=== PATIENT | female | born 1995 ===

== ENCOUNTER 2019-12-13 23:20 | Emergency (ER) | payer OTHER ==
[~2019-12-13] VITALS: Ht 152.4 cm; Wt 44.9 kg
[2019-12-13] MEDS ORDERED: ZITHROMAX500 MG PO (23:34)
[2019-12-13] MEDS ORDERED: ALBUTEROL0.63 MG/3 IH (23:35)
[2019-12-14] MEDS ORDERED: PHENAGIL TABLE1 EACH PO (04:35)
[2019-12-14] MEDS ORDERED: ZYNCOF 20-400120 ML PO (04:35)
[2019-12-14] MEDS ORDERED: ZYNCOF 400-201 EACH PO (04:35)
[2019-12-14] MEDS ORDERED: ALBUTEROL2.5 MG/3 M IH (04:42)
== END 2019-12-14 04:43 | disposition home or self-care (01) ==
LOC: ER 23:20
DX: B34.9 Viral infection, unspecified (principal); R50.9 Fever, unspecified